=== PATIENT | male | born 1965 | race Caucasian/White ===

== ENCOUNTER 2018-04-20 09:09 | Day surgery (SDC) | payer OTHER ==
[~2018-04-20] VITALS: Ht 175.3 cm; Wt 80.3 kg
[~2018-04-20 09:09] MED LIST: Flomax0.4 MG PO; Norco 5-325 Ta1 EACH PO; Zofran Odt4 MG SL
[2018-04-20] MEDS ORDERED: LEVSOD75 (09:49)
== END 2018-04-20 10:48 | disposition home or self-care (01) ==
LOC: ORSCSDS 09:09
PROVIDERS: Surgery
PROC: 0DJD8ZZ Inspection of Lower Intestinal Tract, Via Natural or Artificial Opening Endoscopic (ICD-10-PCS; principal; 2018-04-20 10:30)
DX: Z12.11 Encounter for screening for malignant neoplasm of colon (principal); E78.5 Hyperlipidemia, unspecified; Z79.899 Other long term (current) drug therapy
CPT/HCPCS: J7120